=== PATIENT | male | born 1995 | race Caucasian/White ===

== ENCOUNTER 2017-08-08 20:23 | Emergency (ER) | payer BC ==
[~2017-08-08] VITALS: Ht 180.3 cm; Wt 60.5 kg
[2017-08-08 20:28] VITALS: BP 132/92
== END 2017-08-08 22:08 | disposition home or self-care (01) ==
LOC: ED 22:02
DX: J06.9 Acute upper respiratory infection, unspecified (principal); J02.9 Acute pharyngitis, unspecified
CPT/HCPCS: 71020; 93005; 99284

== ENCOUNTER 2018-09-09 13:42 | Emergency (ER) | payer BC, OTHER ==
[~2018-09-09] VITALS: Ht 180.3 cm; Wt 58.3 kg
[2018-09-09] MEDS ORDERED: ONDANSETRON ODT 4 MG PO ONE (14:30)
[2018-09-09 14:37] LABS: MEAN CORPUSCULAR HEMOGLOBIN 29.3 pg (27.5-34.5); MEAN CORPUSCULAR HGB CONC 33.9 g/dL (33.2-36.2); MEAN CORPUSCULAR VOLUME 86.5 fL (81-97); MEAN PLATELET VOLUME 7.4 fL (7.4-10.4); PLATELET COUNT 371 x10^3/uL (130-400); RED BLOOD COUNT 5.76 x10^6/uL (4.38-5.82); RED CELL DISTRIBUTION WIDTH 13.8 % (9.4-14.8)
[2018-09-09 14:47] LABS: ALANINE AMINOTRANSFERASE 34 U/L (12-78); ALBUMIN 3.8 g/dL (3.4-5.0); ANION GAP 9 mmol/L (5-15); CHLORIDE 106 mmol/L (98-107); CREATININE 0.73 mg/dL (0.7-1.3)
[2018-09-09 14:50] LABS: ALKALINE PHOSPHATASE 157 U/L (45-117); BILIRUBIN,TOTAL 1.1 mg/dL (0.2-1.0)
[2018-09-09 15:01] LABS: BASOPHILS # (AUTO) 0.07 x10^3/uL (0-0.1); BASOPHILS % (AUTO) 0 % (0-1); EOSINOPHILS # (AUTO) 0.33 x10^3/uL (0-0.4); EOSINOPHILS % (AUTO) 2 % (1-7); LYMPHOCYTES # (AUTO) 1.73 x10^3/uL (1-3.4); LYMPHOCYTES % (AUTO) 10 % (22-44); MD SCAN; MONOCYTES # (AUTO) 0.56 x10^3/uL (0.2-0.8); MONOCYTES % (AUTO) 3 % (2-9); NEUTROPHILS # (AUTO) 13.99 x10^3/uL (1.8-6.8); NEUTROPHILS % (AUTO) 84 % (42-75)
[2018-09-09] MEDS ORDERED: ONDANSETRON ODT 4 MG ONE (15:09)
[2018-09-09 16:40] LABS: MICROSCOPIC NOT IND
[2018-09-09 16:51] LABS: CULTURE INDICATED? NO
[2018-09-09] MEDS ORDERED: SODIUM CHLORIDE FLUSH 10ML SYR IVF ONE (18:30)
[2018-09-09] MEDS ORDERED: SODIUM CHLORIDE 0.9% 1,000ML IVBOLUS ONE (18:30)
[2018-09-09] MEDS ORDERED: OMNIPAQUE 350 MG/ML, 100ML BOTTLE ONE (19:06)
[2018-09-09 20:46] VITALS: BP 104/72
== END 2018-09-09 20:49 | disposition home or self-care (01) ==
LOC: ED 18:47
DX: K29.00 Acute gastritis without bleeding (principal)
CPT/HCPCS: 36415; 74177; 76700; 80053; 81003; 83690; 85025; 96360; 96361; 99285; J7030; Q0162; Q9967; 96365